=== PATIENT | female | born 1990 | race Caucasian/White ===

== ENCOUNTER 2016-08-26 01:27 | Emergency (ER) | payer MEDICARE, OTHER ==
[~2016-08-26] VITALS: Ht 170.2 cm; Wt 67.5 kg
[2016-08-26 01:30] VITALS: Ht 170.2 cm; Wt 67.5 kg
--- NOTE | 2016-08-26 03:05 | ERA ---
ER Documentation Chief Complaint Date/Time DATE: 08/26/16 TIME: 03:04 Chief Complaint RLQ abd pain x 2 days HPI The patient is a 26-year-old female, presenting to the ER because of right lower quadrant abdominal pain intermittently for the last 2 days. She denies similar symptoms previously, complains of subjective fever, vomiting, dysuria. She denies chest pain, dyspnea. She does not smoke or drink Past medical history: Asthma, migraine, depression, rheumatoid arthritis Past surgical history: None ROS All systems reviewed and are negative except as per history of present illness. Medications Home Meds Unable to Obtain Active Prescriptions or Reported Meds Allergies Allergies: Coded Allergies: ketorolac (Verified Allergy, Unknown, 05/12/15) metoclopramide (Verified Allergy, Unknown, 05/12/15) prochlorperazine (Verified Allergy, Unknown, 05/12/15) Physical Exam Vitals Vital Signs Date Time Temp Pulse Resp B/P Pulse Ox O2 Delivery O2 Flow Rate FiO2 08/26/16 05:00 80 20 130/75 100 Room Air 08/26/16 01:30 98.7 89 20 114/61 98 Physical Exam Const: No acute distress. Head: Atraumatic. Eyes: Normal Conjunctiva. ENT: Normal External Ears, Nose and Mouth. Neck: Full range of motion. No meningismus. Resp: Clear to auscultation bilaterally. Cardio: Regular rate and rhythm, no murmurs. Abd: Soft, non distended, normal bowel sounds, vague right lower quadrant tenderness, no rigidity, rebound, CVA tenderness Skin: No petechiae or rashes. Back: No midline or flank tenderness. Ext: No cyanosis, or edema. Neur: Awake and alert. No focal deficit Psych: Normal Mood and Affect. Result Diagram: 08/26/16 0423 08/26/16 0423 Results 24 hrs Laboratory Tests Test 08/26/16 03:44 08/26/16 04:23 Bedside Urine pH (LAB) 6.0 Bedside Urine Protein (LAB) 1+ Bedside Urine Glucose (UA) Negative Bedside Urine Ketones (LAB) 1+ Bedside Urine Blood Negative Bedside Urine Nitrite (LAB) Negative Bedside Urine Leukocyte Esterase (L 2+ White Blood Count 5.110^3/ul Red Blood Count 4.0410^6/ul Hemoglobin 8.5g/dl Hematocrit 29.9% Mean Corpuscular Volume 74.0fl Mean Corpuscular Hemoglobin 21.0pg Mean Corpuscular Hemoglobin Concent 28.4g/dl Red Cell Distribution Width 17.6% Platelet Count 89593^3/UL Mean Platelet Volume 10.0fl Neutrophils % 61.2% Lymphocytes % 29.6% Monocytes % 8.2% Eosinophils % 0.6% Basophils % 0.2% Nucleated Red Blood Cells % 0.0/100WBC Neutrophils # 3.210^3/ul Lymphocytes # 1.510^3/ul Monocytes # 0.410^3/ul Eosinophils # 0.010^3/ul Basophils # 0.010^3/ul Nucleated Red Blood Cells # 0.010^3/ul Sodium Level 142mmol/L Potassium Level 3.1mmol/L Chloride Level 101mmol/L Carbon Dioxide Level 26mmol/L Anion Gap 18 Blood Urea Nitrogen 12mg/dl Creatinine 0.56mg/dl Glucose Level 111mg/dl Calcium Level 9.3mg/dl Total Bilirubin 0.2mg/dl Direct Bilirubin 0.00mg/dl Indirect Bilirubin 0.2mg/dl Aspartate Amino Transf (AST/SGOT) 16IU/L Alanine Aminotransferase (ALT/SGPT) 20IU/L Alkaline Phosphatase 86IU/L Total Protein 8.1g/dl Albumin 4.4g/dl Globulin 3.70g/dl Albumin/Globulin Ratio 1.18 Lipase 112U/L Current Medications Medications (Trade) Dose Ordered Sig/Juni Route PRN Reason Start Time Stop Time Status Last Admin Dose Admin Morphine Sulfate (morphine) 4 mg ONCE STAT IV 08/26/16 03:10 08/26/16 03:13 DC 08/26/16 03:22 Ondansetron HCl (Zofran Inj) 4 mg ONCE STAT IV 08/26/16 03:10 08/26/16 03:13 DC 08/26/16 03:22 Diphenhydramine HCl (Benadryl) 50 mg ONCE ONCE IV 08/26/16 04:00 08/26/16 04:01 DC 08/26/16 03:36 Acetaminophen/ Hydrocodone Bitart (Julian (5/325)) 1 tab ONCE ONCE PO 08/26/16 05:00 08/26/16 05:01 DC 08/26/16 04:49 Procedures/MDM MEDICAL MAKING DECISION: The patient is 26-year-old female, presenting with acute abdominal pain of unclear etiology. She went to 1 L normal saline for clinical dehydration, morphine 4 mg IV and Julian 10 5 mg p.o. for pain and Zofran 4 mg IV for nausea, Benadryl 50 mg IV for possible allergic reaction to morphine with good response. She repeatedly keeps asking for more pain medication. She left AGAINST MEDICAL ADVICE prior to availability of the CT and the blood test The differential diagnoses considered include but are not limited to cholelithiasis, cholecystitis, cystitis, pancreatitis, hepatitis, gastritis, peptic ulcer disease, gastric ulcer, appendicitis, diverticulitis, cholangitis, choledocholithiasis, partial small bowel obstruction. Departure Diagnosis: Primary Impression: Abdominal pain Qualified Code: R10.84 - Generalized abdominal pain Additional Impressions: Hypokalemia UTI (urinary tract infection) Anemia Condition: Stable Comments The patient signed out AGAINST MEDICAL ADVICE. Risks, benefits, alternatives were explained to the patient. Risks include but not limited to and permanent disability ELLY APPIAH MD August 26, 2016 03:05
[2016-08-26] MEDS ORDERED: morphine 4 MG/ML VIAL IV STA (03:10)
[2016-08-26] MEDS ORDERED: ONDANSETRON 4 MG INJ IV STA (03:10)
[2016-08-26 03:43] LABS: URINE BLOOD (Dip) POC Negative (NEGATIVE)
[2016-08-26] MEDS ORDERED: DIPHENHYDRAMINE 50 MG INJ IV ONE (04:00)
[2016-08-26 04:34] LABS: ADD SCAN DIFF NO
[2016-08-26 04:42] LABS: ABNORMAL IP MESSAGE 1; BASOPHILS % 0.2 % (0.0-2.0); EOSINOPHILS % 0.6 % (0.0-7.0); HEMATOCRIT 29.9 % (37.0-47.0); HEMOGLOBIN 8.5 g/dl (12.0-16.0); LYMPHOCYTES # 1.5 10^3/ul (0.8-2.9); LYMPHOCYTES % 29.6 % (15.0-51.0); MEAN CORPUSCULAR HGB CONC 28.4 g/dl (32.0-37.0); MONOCYTE # 0.4 10^3/ul (0.3-0.9); MONOCYTES % 8.2 % (0.0-11.0); NEUTROPHIL # 3.2 10^3/ul (1.6-7.5); NEUTROPHILS % 61.2 % (39.0-77.0); PLATELET COUNT 375 10^3/UL (140-415); RED BLOOD COUNT 4.04 10^6/ul (4.20-5.40); RED CELL DISTRIBUTION WIDTH 17.6 % (11.5-14.5); WHITE BLOOD COUNT 5.1 10^3/ul (4.8-10.8)
[2016-08-26 04:54] LABS: ALBUMIN 4.4 g/dl (3.3-4.9); POTASSIUM 3.1 mmol/L (3.5-5.1)
[2016-08-26 04:56] LABS: BILIRUBIN,INDIRECT 0.2 mg/dl (0-1.1); BILIRUBIN,TOTAL 0.2 mg/dl (0.2-1.3); CREATININE 0.56 mg/dl (0.44-1.00)
[2016-08-26 04:57] LABS: ALBUMIN/GLOBULIN RATIO 1.18; CALCIUM 9.3 mg/dl (8.4-10.2); TOTAL PROTEIN 8.1 g/dl (6.1-8.1)
[2016-08-26 05:00] VITALS: BP 130/75; PULSE 80; RESP 20
[2016-08-26] MEDS ORDERED: HYDROCODONE/APAP (5/325) TAB PO ONE (05:00)
--- NOTE | 2016-08-26 05:14 | RADRPT ---
PROCEDURE: CT ABDOMEN/PELVIS WITHOUT CONTRAST CLINICAL INDICATION: 26-year-old female with abdominal pain. TECHNIQUE: The study was performed utilizing a GE [employer] VCT 64-slice CT scanner. Direct axia l sections were obtained through the abdomen and pelvis without the use of intravenous contrast mate rial. Sagittal and coronal reformations were obtained. One or more of the following dose reduction t echniques were utilized: automated exposure control, adjustment of the mA and/or kV according to pat ient's size or use of iterative reconstruction technique. The images were reviewed on a PACS workst [employer]. CTD/vol = 6.4 mGy; Total Exam DLP = 369.2 mGy-cm. COMPARISON: None. FINDINGS: The lung bases are unremarkable. There is no evidence for significant pleural effusion. The liver has a normal size and contour without focal areas of abnormal density. No intrahepatic nor extrahepa tic biliary ductal dilatation is seen. The gallbladder demonstrates no wall thickening nor perichole cystic fluid. No biliary stones are evident. The pancreas is without areas of abnormal attenuation. The spleen is identified and has a normal size without abnormal density. The adrenal glands are unr emarkable. The kidneys are without abnormal density. No hydroureteronephrosis nor nephroureterolithi asis is evident. The urinary bladder contains urine. There is mild retained stool identified through out the ascending and transverse colon without obstruction. The appendix is visualized and is witho ut abnormal thickening or surrounding inflammatory reaction. The uterus is unremarkable. Surgical c lips are seen adjacent to the uterine fundal region from prior tubal ligation. There is a right ovarian cyst measuring approximately 2.8 x 2.4 x 2.5 cm. There is no significant free fluid. Phleb oliths are seen within the pelvis. The aortoiliac vessels are without aneurysmal dilatation. There i s a dynamic compression screw within the right hip with a short femoral plate and screws from prior open reduction internal fixation. An umbilical metallic piercing is noted. IMPRESSION: 1. Mild retained stool without obstruction. 2. No CT evidence for appendicitis. 3. Right ovarian cyst. 4. Prior right hip ORIF. .Ian Salamanca MD, MD Date Time Electronically viewed and signed by .Ian Salamanca MD, on 08/26/2016 05:14 .Segundo
[2016-08-26] MEDS ORDERED: QUET200T PO (05:23)
[2016-08-26] MEDS ORDERED: DIVA500T7 PO (05:23)
[2016-08-26] MEDS ORDERED: VENL75TA2 PO (05:23)
== END 2016-08-26 05:08 | disposition left against medical advice (07) ==
LOC: E/R 01:27
DX: R10.84 Generalized abdominal pain (principal); E87.6 Hypokalemia; N39.0 Urinary tract infection, site not specified; D64.9 Anemia, unspecified; J45.909 Unspecified asthma, uncomplicated; R11.10 Vomiting, unspecified
CPT/HCPCS: 74176; 80053; 81003; 83690; 85025; 96374; 96375; 99285; J1200; J2270; J2405

== ENCOUNTER 2016-11-27 20:44 | Emergency (ER) | payer MEDICARE, OTHER ==
[~2016-11-27] VITALS: Ht 167.6 cm; Wt 67.5 kg
[~2016-11-27 20:44] MED LIST: DIVA500T7 PO; QUET200T PO; VENL75TA2 PO
[2016-11-27 20:49] VITALS: Ht 167.6 cm; Wt 67.5 kg
[2016-11-27] MEDS ORDERED: morphine 4 MG/ML VIAL IV STA (21:17)
[2016-11-27] MEDS ORDERED: SOD CHLORIDE 0.9% 1,000 ML IV STA (21:17)
[2016-11-27] MEDS ORDERED: ONDANSETRON 4 MG INJ IV STA (21:17)
--- NOTE | 2016-11-27 21:31 | ERD ---
ER Documentation Chief Complaint Date/Time DATE: 11/27/16 TIME: 21:29 Chief Complaint RLQ abd pain x 2 days HPI 26-year-old female presents here for complaints of for right lower quadrant abdominal pain and vomiting and fever that started 2 days ago. Patient describing the pain as sharp pain, 6/10 scale, is worse upon touching the area accompanied with vomiting. Patient did not take any medications to help with symptoms. ROS All systems reviewed and are negative except as per history of present illness. Medications Home Meds Active Scripts Phenazopyridine Hcl* (Pyridium*) 200 Mg Tab, 200 MG PO TID Y for URINARY PAIN, # 6 TAB Prov:CECIL JONES [employer] 11/27/16 Ciprofloxacin Hcl* (Ciprofloxacin Hcl*) 500 Mg Tablet, 500 MG PO BID for 10 Days , TAB Prov:CECIL JONES [employer] 11/27/16 Reported Medications Quetiapine Fumarate* (Seroquel*) 200 Mg Tablet, 200 MG PO HS, #30 TAB 08/26/16 Divalproex Sodium* (Depakote ER*) 500 Mg Tabsr, 1500 MG PO DAILY, #90 TAB.SA 08/26/16 Venlafaxine Hcl* (Effexor XR*) 75 Mg Tab.er.24, 75 MG PO DAILY, TAB.SA 08/26/16 Allergies Allergies: Coded Allergies: ketorolac (Verified Allergy, Unknown, 05/12/15) metoclopramide (Verified Allergy, Unknown, 05/12/15) prochlorperazine (Verified Allergy, Unknown, 05/12/15) PMhx/Soc History of Surgery: Yes (tubal ligation, uterine ablasion) Hx Respiratory Disorders: Yes (asthma) Hx Psychiatric Problems: Yes (depression) Hx Miscellaneous Medical Probl: Yes (arthritis) Hx Alcohol Use: No Hx Substance Use: No Hx Tobacco Use: No Smoking Status: Never smoker FmHx Family History: No coronary disease, No diabetes, No other Physical Exam Vitals Vital Signs Date Time Temp Pulse Resp B/P Pulse Ox O2 Delivery O2 Flow Rate FiO2 11/27/16 20:49 99.1 111 20 121/68 100 Physical Exam GENERAL: The patient is well developed and appropriate for usual state of health, in no apparent distress. CHEST: Clear to auscultation bilaterally. There are no rales, wheezes or rhonchi. HEART: Regular rate and rhythm. No murmurs, clicks, rubs or gallops. No S3 or S4. ABDOMEN: Soft, noted right lower quadrant tenderness. Good bowel sounds. No rebound or guarding. No gross peritonitis. No gross organomegaly or masses. No Ortiz sign or McBurney point tenderness. BACK: No midline or flank tenderness. EXTREMITIES: Equal pulses bilaterally. There is no peripheral clubbing, cyanosis or edema. No focal swelling or erythema. Full range of motion. Grossly neurovascularly intact. NEURO: Alert and oriented. Cranial nerves 2-12 intact. Motor strength in all 4 extremities with 5/5 strength. Sensation grossly intact. Normal speech and gait. SKIN: There is no apparent rash or petechia. The skin is warm and dry. HEMATOLOGIC AND LYMPHATIC: There is no evidence of excessive bruising or lymphedema. No gross cervical, axillary, or inguinal lymphadenopathy. Result Diagram: 11/27/16220611/27/162206 Results 24 hrs Laboratory Tests Test 11/27/16 21:23 11/27/16 22:07 Urine Color YELLOW Urine Clarity SLIGHTLY CLOUDY Urine pH 6.0 Urine Specific Blackey 1.014 Urine Ketones TRACEmg/dL Urine Nitrite NEGATIVEmg/dL Urine Bilirubin NEGATIVEmg/dL Urine Urobilinogen NEGATIVEmg/dL Urine Leukocyte Esterase 3+Trena/ul Urine Microscopic RBC 4/HPF Urine Microscopic WBC 9/HPF Urine Squamous Epithelial Cells MODERATE/HPF Urine Yeast (Budding) FEW/HPF Urine Hemoglobin NEGATIVEmg/dL Urine Glucose NEGATIVEmg/dL Urine Total Protein NEGATIVEmg/dl White Blood Count 7.810^3/ul Red Blood Count 4.2010^6/ul Hemoglobin 8.4g/dl Hematocrit 30.2% Mean Corpuscular Volume 71.9fl Mean Corpuscular Hemoglobin 20.0pg Mean Corpuscular Hemoglobin Concent 27.8g/dl Red Cell Distribution Width 17.5% Platelet Count 87077^3/UL Mean Platelet Volume 10.2fl Neutrophils % 64.1% Lymphocytes % 27.8% Monocytes % 7.3% Eosinophils % 0.3% Basophils % 0.1% Nucleated Red Blood Cells % 0.3/100WBC Neutrophils # (Manual) 5.010^3/ul Lymphocytes # 2.210^3/ul Monocytes # 0.610^3/ul Eosinophils # 0.010^3/ul Basophils # 0.010^3/ul Nucleated Red Blood Cells # 0.010^3/ul Sodium Level 140mmol/L Potassium Level 3.9mmol/L Chloride Level 98mmol/L Carbon Dioxide Level 28mmol/L Anion Gap 18 Blood Urea Nitrogen 11mg/dl Creatinine 0.56mg/dl Glucose Level 89mg/dl Calcium Level 9.6mg/dl Total Bilirubin 0.0mg/dl Direct Bilirubin 0.00mg/dl Indirect Bilirubin 0.0mg/dl Aspartate Amino Transf (AST/SGOT) 14IU/L Alanine Aminotransferase (ALT/SGPT) 19IU/L Alkaline Phosphatase 97IU/L Total Protein 7.4g/dl Albumin 4.1g/dl Globulin 3.30g/dl Albumin/Globulin Ratio 1.24 Lipase 369U/L Current Medications Medications (Trade) Dose Ordered Sig/Juni Route PRN Reason Start Time Stop Time Status Last Admin Dose Admin Sodium Chloride (NS) 1,000 ml @ 1,000 mls/hr Q1H STAT IV 11/27/16 21:17 11/27/16 22:16 DC 11/27/16 21:39 Morphine Sulfate (morphine) 4 mg ONCE STAT IV 11/27/16 21:17 11/27/16 21:19 DC 11/27/16 21:39 Ondansetron HCl (Zofran Inj) 4 mg ONCE STAT IV 11/27/16 21:17 11/27/16 21:19 DC 11/27/16 21:39 Diphenhydramine HCl (Benadryl) 50 mg ONCE ONCE IV 11/27/16 22:00 11/27/16 22:01 DC 11/27/16 21:57 Morphine Sulfate 2 mg 2 mg ONCE ONCE IV 11/27/16 23:00 11/27/16 23:01 DC 11/27/16 22:48 Ceftriaxone Sodium (Rocephin) 50 ml @ 100 mls/hr ONCE ONCE IVPB 11/27/16 23:00 11/27/16 23:29 Normal saline IV bolus was given here in emergency department for rehydration, patient tolerated IV fluids.Patient was given medication for pain here in emergency department, after treatment, patient verbalized feeling much better. Patient's pain is improved.Patient was given Zofran here in the emergency department. After treatment, patient was able to tolerate po fluids here in the emergency department without any vomiting. There is no signs and symptoms of dehydration. PROCEDURE: CT abdomen and pelvis without contrast. CLINICAL INDICATION: Right lower quadrant abdominal pain and vomiting. TECHNIQUE: CT of the abdomen and pelvis without contrast was performed on a multidetector high-resolution CT scanner. Coronal and sagittal reformatted images were obtained from the axial source images. Images were reviewed on a high-resolution PACS workstation. The total exam CTDI equals 6.44 mGy and the total exam DLP equals or 361.74 mGy-cm. One or more of the following dose reduction techniques were used: - Automated exposure control. - Adjustment of the mA and/or kV according to patient size. - Use of iterative reconstruction technique. COMPARISON: Or CT dated 08/26/2016. FINDINGS: Visualized lower thorax: There is mosaic attenuation within the visualized lung bases, consistent with small-vessel or small airways disease. The visualized heart is unremarkable. Hepatobiliary system and spleen: The liver is grossly unremarkable. There is no intra or extrahepatic biliary ductal dilatation. The gallbladder is grossly unremarkable. The spleen is grossly unremarkable. The pancreas is grossly unremarkable. Adrenal glands and genitourinary system: The adrenal glands are grossly unremarkable. There is a punctate nonobstructing stone at the lower pole of the right kidney. There is no hydronephrosis. The urinary bladder is grossly unremarkable. There is a surgical clip in the region of the left adnexa and an additional surgical clip adjacent to the dome of the bladder, with the left surgical clip likely related to left tubal ligation. Gastrointestinal system: The stomach and small bowel are unremarkable. There is no bowel wall thickening or evidence of obstruction. The appendix is in the right lower quadrant and is unremarkable. Peritoneum, vascular, and lymphatics: There is no free intraperitoneal air or free fluid. There is no mesenteric or retroperitoneal adenopathy. There are atherosclerotic changes of the aorta, which is nonaneurysmal. Musculoskeletal system and soft tissues: There is mild multilevel degenerative enthesopathy. There has been prior right femoral ORIF. There is deformity of the right iliac wing, likely the sequela of prior trauma. There are no concerning osseous lesions. IMPRESSION: 1. Mosaic attenuation at the visualized lung bases, consistent with small- vessel or small airways disease. 2. Punctate nonobstructing stone at the lower pole of the right kidney. No hydronephrosis. 3. Left adnexal surgical clip, consistent with prior tubal ligation. Additional surgical clip adjacent to the dome of the bladder, which may reflect a migrated right tubal ligation clip. RPTAT: HLBP .Ari Weinstein MD, MD Date Time Electronically viewed and signed by .Ari Weinstein MD, MD on 11/27/2016 22:52 .P/ CC: CECIL JONES NP Procedures/MDM Medical Decision Making: Patient symptoms of abdominal pain most likely consistent with urinary tract infection. Patient any symptoms of pyelonephritis at this time. No leukocytosis, no bandemia. There is low suspicion for abdominal emergencies at this time. Patients abdominal exam is normal at this time. Patients radiology exam does not show any abdominal emergencies at this time. There is low suspicion for appendicitis, cholecystitis, abdominal aortic aneurysms or peritonitis at this time. There is low suspicion for sepsis. Patient appears well and is hemodynamically stable. Disposition: Home. Condition: Stable Prescription ciprofloxacin, Pyridium Instructions: Patient is advised to take medications as prescribed. Patient is advised to rest, increase fluid intake and do brat diet for next 1-2 days and progress as tolerated. Patient is advised that if symptoms are worse, severe abdominal pain, uncontrolled vomiting, high fever, severe flank pain, worst signs and symptoms, to return to the emergency department immediately. Otherwise, patient can follow up with primary care doctor in 5-7 days. Departure Diagnosis: Primary Impression: UTI (urinary tract infection) Urinary tract infection type: acute cystitis Hematuria presence: without hematuria Qualified Code: N30.00 - Acute cystitis without hematuria Condition: Stable CECIL JONES NP Nov 27, 2016 21:31
[2016-11-27] MEDS ORDERED: DIPHENHYDRAMINE 50 MG INJ IV ONE (22:00)
[2016-11-27 22:19] LABS: ADD UMIC YES; UR ASCORBIC ACID NEGATIVE (NEGATIVE); UR BILIRUBIN (Dip) NEGATIVE (NEGATIVE); UR BLOOD (Dip) NEGATIVE (NEGATIVE); UR BUDDING YEAST FEW /HPF (NONE SEEN); UR CLARITY SLIGHTLY CLOUDY (CLEAR); UR COLOR YELLOW (YELLOW); UR GLUCOSE (Dip) NEGATIVE (NEGATIVE); UR KETONES (Dip) TRACE mg/dL (NEGATIVE); UR LEUKOCYTE ESTERASE (Dip) 3+ Leu/ul (NEGATIVE); UR NITRITE (Dip) NEGATIVE (NEGATIVE); UR RBC 4 /HPF (0-5); UR SPECIFIC GRAVITY (Dip) 1.014 (1.003-1.030); UR SQUAMOUS EPITHELIAL CELL MODERATE /HPF (FEW); UR TOTAL PROTEIN (Dip) NEGATIVE (NEGATIVE); UR UROBILINOGEN (Dip) NEGATIVE (NEGATIVE)
[2016-11-27 22:23] LABS: ABNORMAL IP MESSAGE 1; BASOPHILS % 0.1 % (0.0-2.0); EOSINOPHILS % 0.3 % (0.0-7.0); HEMATOCRIT 30.2 % (37.0-47.0); HEMOGLOBIN 8.4 g/dl (12.0-16.0); LYMPHOCYTES # 2.2 10^3/ul (0.8-2.9); LYMPHOCYTES % 27.8 % (15.0-51.0); MEAN CORPUSCULAR HGB CONC 27.8 g/dl (32.0-37.0); MEAN CORPUSCULAR VOLUME 71.9 fl (82.0-101.0); MEAN PLATELET VOLUME 10.2 fl (7.4-10.4); MONOCYTE # 0.6 10^3/ul (0.3-0.9); MONOCYTES % 7.3 % (0.0-11.0); NEUTROPHILS % 64.1 % (39.0-77.0); NUCLEATED RED BLOOD CELLS% 0.3 /100WBC (0.0-0.0); PLATELET COUNT 355 10^3/UL (140-415); RED CELL DISTRIBUTION WIDTH 17.5 % (11.5-14.5); WHITE BLOOD COUNT 7.8 10^3/ul (4.8-10.8)
[2016-11-27 22:26] LABS: POSITIVE DIFF @See below
[2016-11-27 22:34] LABS: ALBUMIN 4.1 g/dl (3.3-4.9); ALBUMIN/GLOBULIN RATIO 1.24; CALCIUM 9.6 mg/dl (8.4-10.2); CREATININE 0.56 mg/dl (0.44-1.00); POTASSIUM 3.9 mmol/L (3.5-5.1); TOTAL PROTEIN 7.4 g/dl (6.1-8.1)
--- NOTE | 2016-11-27 22:53 | RADRPT ---
PROCEDURE: CT abdomen and pelvis without contrast. CLINICAL INDICATION: Right lower quadrant abdominal pain and vomiting. TECHNIQUE: CT of the abdomen and pelvis without contrast was performed on a multidetector high-reso lution CT scanner. Coronal and sagittal reformatted images were obtained from the axial source image s. Images were reviewed on a high-resolution PACS workstation. The total exam CTDI equals 6.44 mGy a nd the total exam DLP equals or 361.74 mGy-cm. One or more of the following dose reduction techniques were used: - Automated exposure control. - Adjustment of the mA and/or kV according to patient size. - Use of iterative reconstruction technique. COMPARISON: Or CT dated 08/26/2016. FINDINGS: Visualized lower thorax: There is mosaic attenuation within the visualized lung bases, consistent w ith small-vessel or small airways disease. The visualized heart is unremarkable. Hepatobiliary system and spleen: The liver is grossly unremarkable. There is no intra or extrahepat ic biliary ductal dilatation. The gallbladder is grossly unremarkable. The spleen is grossly unremar kable. The pancreas is grossly unremarkable. Adrenal glands and genitourinary system: The adrenal glands are grossly unremarkable. There is a pu nctate nonobstructing stone at the lower pole of the right kidney. There is no hydronephrosis. The urinary bladder is grossly unremarkable. There is a surgical clip in the region of the left adnexa and an additional surgical clip adjacent to the dome of the bladder, with the left surgical clip lik tiffanie related to left tubal ligation. Gastrointestinal system: The stomach and small bowel are unremarkable. There is no bowel wall thick ening or evidence of obstruction. The appendix is in the right lower quadrant and is unremarkable. Peritoneum, vascular, and lymphatics: There is no free intraperitoneal air or free fluid. There is no mesenteric or retroperitoneal adenopathy. There are atherosclerotic changes of the aorta, which i s nonaneurysmal. Musculoskeletal system and soft tissues: There is mild multilevel degenerative enthesopathy. There has been prior right femoral ORIF. There is deformity of the right iliac wing, likely the sequela of prior trauma. There are no concerning osseous lesions. IMPRESSION: 1. Mosaic attenuation at the visualized lung bases, consistent with small-vessel or small airways d isease. 2. Punctate nonobstructing stone at the lower pole of the right kidney. No hydronephrosis. 3. Left adnexal surgical clip, consistent with prior tubal ligation. Additional surgical clip aniket cent to the dome of the bladder, which may reflect a migrated right tubal ligation clip. RPTAT: HLBP .Ari Weinstein MD, MD Date Time Electronically viewed and signed by .Ari Weinstein MD, on 11/27/2016 22:52 .P/
[2016-11-27] MEDS ORDERED: CEFTRIAXONE 1 GM/50 ML (PMX) 50 ML IVPB ONE (23:00)
[2016-11-27] MEDS ORDERED: morphine 2 MG INJ IV ONE (23:00)
[2016-11-27] MEDS ORDERED: CIPR500T4 PO (23:01)
[2016-11-27] MEDS ORDERED: PHEN-538 PO (23:01)
== END 2016-11-27 23:10 | disposition home or self-care (01) ==
LOC: FTE 20:44
DX: N30.00 Acute cystitis without hematuria (principal); J45.909 Unspecified asthma, uncomplicated
CPT/HCPCS: 74176; 80053; 81001; 83690; 85025; 96374; 96375; 96376; 99285; J1200; J2270; J2405; J7030